=== PATIENT | male | born 1970 | race Caucasian/White ===

== ENCOUNTER 2024-04-02 08:16 | Emergency (ER) | payer OTHER, SELFPAY ==
--- NOTE | ~2024-04-02 | XR_ITS ---
EXAMINATION: XR SHOULDER, RIGHT CLINICAL INFORMATION: Pain COMPARISON: Chest radiograph from 03/12/2017 TECHNIQUE: Four views of the right shoulder. FINDINGS: No acute visible fracture or dislocation. Degenerative changes of the glenohumeral and acromioclavicular joint.. Joint space alignment otherwise maintained. Soft tissues are unremarkable. Visualized portions of the chest are unremarkable. XR/XR shoulder RT min 2V IMPRESSION: 1. No acute visible fracture or dislocation. 2. Degenerative changes of the glenohumeral and acromioclavicular joint. Electronically signed by: Edmundo Delaney MD 04/02/2024 10:08 AM EDT
[2024-04-02 08:20] VITALS: BP 174/82; PULSE 83; RESP 20; TEMP 36.8; O2SAT 97; BMI 60.7
--- NOTE | 2024-04-02 08:41 | PC.NURSE ---
NA to name at 08:42
--- NOTE | 2024-04-02 09:02 | PC.NURSE ---
NA to name at 09:02
--- NOTE | 2024-04-02 09:16 | ED_ITS ---
HPI - Extremity Problem General Chief complaint: Extremity Injury, Upper Stated complaint: Pain R shoulder 1 week Time Seen by Provider: 04/02/24 09:16 Source: patient Mode of arrival: ambulatory Limitations: no limitations History of Present Illness ED Provider: Crys LLAMAS Narrative: Patient is a 53-year-old male with history of T2 DM, HTN presenting to the emergency department with complaint right-sided shoulder pain for the past 2 weeks. He denies fall, recent MVC or other injury. Does state that he has been moving a lot of items and rearranging things in his garage recently. He has been using Tylenol with little relief. Denies any weakness, numbness, tingling. States pain does not radiate down right arm. When asked to locate the pain, patient points to trapezius area. Denies any decreased range of motion. Onset (ago): week(s) Associated symptoms: denies other symptoms Related Data Previous Rx's ?Medication ?Instructions ?Recorded cyclobenzaprine 5 mg tablet 5 mg PO TID PRN muscle spasm #10 04/02/24 tabs diclofenac sodium 1 % topical gel 2 g topical QID #100 grams 04/02/24 Allergies Allergy/AdvReac Type Severity Reaction Status Date / Time No Known Allergies Allergy Verified 04/02/24 08:23 [No Known Allergies*] Review of Systems Review of Systems: As per HPI. Yes all other systems are reviewed and are negative Constitutional: Constitutional: Reports as per HPI [facility] Social History Social History Advance Directives: No Advance Directives Information Provided: Yes Do you have a plan to hurt others: No Plan Physical Exam Vital Signs: Vital Signs: Last Vital Signs Temp 98.3 F 04/02/24 08:20 Pulse 83 04/02/24 08:20 Resp 20 04/02/24 08:20 BP 174/82 H 04/02/24 08:20 Pulse Ox 97 04/02/24 08:20 O2 Del Method Room Air 04/02/24 08:20 BMI result Body Mass Index 60.7 Vital signs have been reviewed and appear to be correct. Blood pressure elevated. Heart rate normal. Respiratory rate normal. Temperature normal. Oxygen saturation normal. Const: General: cooperative, healthy appearing and no acute distress Nutritional Appearance: obese morbidly obese Orientation/consciousness: oriented to person, oriented to place, oriented to time and patient oriented x3 Limitations: no limitations HEENT: Head: Yes normocephalic and Yes atraumatic Ears: external ears normal General nose exam: Normal external nose present Face and sinus: Yes face symmetric Mouth: oropharynx normal and moist mucous membranes Throat: Yes uvula midline Eyes: Pupils: Equal, round and reactive pupils present Neck: Neck: Yes normal visual inspection, Yes full ROM, Yes no lymphadenopathy, Yes no meningeal signs, Yes trachea midline, Yes supple, No anterior neck swelling and No tender Carotids: normal carotid upstroke Resp: Effort & Inspection: normal respiratory effort and able to speak in complete sentences Auscultation: clear to auscultation bilaterally Cardio: Rate: regular rate Rhythm: regular rhythm Heart sounds: S1 normal heart sound present and S2 normal heart sound present GI: Palpation (GI): Soft to palpation and nontender Auscultation: normoactive bowel sounds : General: Yes no CVA tenderness Back/Spine/Pelvis: Back: no CVA tenderness Cervical Spine: normal cervical lordosis, cervical ROM normal, cervical muscular tenderness (right), No pain with cervical ROM, No cervical spasm, No Cervical spine tenderness and No step off deformity Skin: General skin exam: elasticity normal and turgor normal Neuro: General: oriented to person, oriented to place, oriented to time, patient oriented x3, moves all extremities, no meningeal signs, no focal motor deficits and CN's II-XI intact bilaterally Cranial nerves: Yes Equal, round and reactive pupils present Cognition (Neuro): normal cognition Extrem: General: Yes full ROM, Yes no pedal edema and Yes no calf tenderness Right upper extremity: shoulder/upper arm Details: normal to inspection, tende rness (over trapezius), axillary nerve sensory function normal and normal ROM; no swelling, no ecchymosis and no unusual warmth and Extremity exam: right hand Details: vascular exam Details: radial pulse present Details: 2+ and normal ROM of fingers Psych: Mental Status: mental status grossly normal Affect: normal affect Thought process: Normal thought process present Medical Decision Making Medical Decision Making MDM Narrative: Patient is a 53-year-old male with history of T2 DM, HTN presenting to the emergency department with complaint right-sided shoulder pain for the past 2 weeks. On exam patient is awake, A+Ox3, VS WNL, afebrile, normal neurological exam without focal deficits, physical exam findings as above. Given reported symptoms and physical exam findings, initial differential includes right shoulder strain, cervical strain, cervical radiculopathy. X-ray notable for Degenerative changes of glenohumeral and AC joint of right shoulder.. My interpretation is in agreement with the radiologist's interpretation. Patient updated on results and all questions answered. Physical exam findings most consistent with musculoskeletal pain. Will treat patient with cyclobenzaprine and diclofenac gel. Advised warm compresses. Follow up with primary care provider. Return precautions discussed at bedside. Patient verbalized understanding of and agreement with plan. Differential Diagnosis Differential Diagnoses: The differential diagnosis associated with the presentation includes as per mdm Independent Interpretation I performed an independent interpretation of an: Plain X-Ray Interpretation: Degenerative changes of glenohumeral and AC joint of right shoulder. Radiology Impression Discussion of test interpretation with radiology: I have reviewed the radiologist's reading. Radiologist Impression: XR/XR shoulder RT min 2V IMPRESSION: 1. No acute visible fracture or dislocation. 2. Degenerative changes of the glenohumeral and acromioclavicular joint. External Record Review External record reviewed: Inpatient record, Office record and Outpatient record Prescription Management I considered prescription management with: Pain Medication and Other Chronic Conditions Patient?s care impacted by: Diabetes and Hypertension Discharge Plan Discharge Clinical Impression: Muscle strain of right shoulder Patient Disposition: Home, Self-Care Instructions: Muscle Strain (DC), Warm Compress or Soak (ED) Additional Instructions: You have been evaluated in the emergency department today for shoulder pain. Your evaluation did not find evidence of medical conditions requiring emergent intervention at this time. We recommend applying warm compresses for 10-15 minutes at a time several times daily, performing gentle stretching exercises several times daily and resume normal activities as tolerated. We recommend you take 600mg ibuprofen every 6 hours or 650mg Tylenol every 6 hours as needed for pain. If Needed you can alternate these medications as they take 1 medication every 3 hours. For instance at noon take ibuprofen, then at 3:00 p.m. take Tylenol, then at 6:00 p.m. take ibuprofen. You are being prescribed muscle relaxers which you can use every 8 hours as needed for muscle spasms. You are being prescribed diclofenac gel which you can apply directly to the affected area as prescribed. Please schedule an appointment for follow-up with your primary care provider this week. Return to the emergency department if you experience worsening pain, numbness, tingling, change of color in your arm, or any other concerning symptoms. Prescriptions: New cyclobenzaprine 5 mg tablet 5 mg PO TID PRN (Reason: muscle spasm) Qty: 10 0RF diclofenac sodium 1 % gel 2 g topical QID Qty: 100 0RF Rx Instructions: apply to right shoulder Print Language: Vietnamese
[2024-04-02 10:31] VITALS: BP 144/72; PULSE 71; RESP 16; TEMP 36.3; O2SAT 98
[2024-04-02 10:32] VITALS: BP 144/72; PULSE 71; RESP 16; TEMP 36.3; O2SAT 98
== END 2024-04-02 10:43 | disposition home or self-care (01) ==
PROVIDERS: Emergency Provider Emergency Medicine
DX: S46.911A Strain of unspecified muscle, fascia and tendon at shoulder and upper arm level, right arm, initial encounter (principal); M25.511 Pain in right shoulder; X58.XXXA Exposure to other specified factors, initial encounter; Y93.89 Activity, other specified; Y92.89 Other specified places as the place of occurrence of the external cause; Y99.8 Other external cause status; Z79.899 Other long term (current) drug therapy
CPT/HCPCS: 73030; 99283

== ENCOUNTER 2024-07-16 16:43 | Emergency (ER) | payer OTHER, SELFPAY ==
--- NOTE | ~2024-07-16 | XR_ITS ---
EXAMINATION: XR CHEST CLINICAL INFORMATION: cough COMPARISON: Chest 03/12/2017 TECHNIQUE: 2 views of the chest were obtained. FINDINGS: No significant abnormality is noted involving the heart, lungs, mediastinum, bony thorax or soft tissues. XR/XR chest 2V IMPRESSION: Unremarkable chest examination. Electronically signed by: Mike Saini MD 07/16/2024 07:00 PM [facility] [place]
[2024-07-16 17:33] VITALS: BP 158/67; PULSE 94; RESP 22; TEMP 37.2; O2SAT 98; BMI 59.0
--- NOTE | 2024-07-16 17:33 | ED_ITS ---
HPI - General Adult General Chief complaint: Upper Respiratory Symptoms Stated complaint: headache,sore throat cough Time Seen by Provider: 07/16/24 19:11 Source: patient, RN notes reviewed and old records reviewed Mode of arrival: ambulatory Limitations: no limitations History of Present Illness ED Provider: Radha LLAMAS narrative: 53-year-old male presents for evaluation of flu-like symptoms. His symptoms started 2 days ago he reports that several individuals or workup in sick with similar symptoms. He also complains of a sore throat, cough He reports subjective fevers and chills. No abdominal pain, nausea vomiting The patient does not smoke Related Data Previous Rx's ?Medication ?Instructions ?Recorded cyclobenzaprine 5 mg tablet 5 mg PO TID PRN muscle spasm #10 04/02/24 tabs diclofenac sodium 1 % topical gel 2 g topical QID #100 grams 04/02/24 oseltamivir 75 mg capsule (Tamiflu) 75 mg PO Q12H 5 days #10 caps 07/16/24 Allergies Allergy/AdvReac Type Severity Reaction Status Date / Time No Known Allergies Allergy Verified 07/16/24 17:35 [No Known Allergies*] Review of Systems Constitutional: Constitutional: Reports body ache(s), Reports chills, Reports fever(s) and Reports headache(s) ENT: Denies vertigo, Denies dizziness, Reports headache(s) and Reports sore throat Cardiovascular: Cardiovascular: Denies chest pain and Reports dyspnea Respiratory: Respiratory: Reports cough, Reports dyspnea and Reports wheezing Gastrointestinal: Gastrointestinal: Denies abdominal pain, Denies nausea and Denies vomiting Musculoskeletal: Musculoskeletal: Denies back pain Integumentary/Breasts: Skin/Breast: Denies rash Neurologic: Denies vertigo, Denies dizziness and Reports headache(s) Allergic/Immunologic: Allergic/Immunologic: Reports wheezing PMFSH Social History Social History Advance Directives: No Advance Directives Information Provided: No Physical Exam ED Vital Signs: Vital Signs - 24 hr 07/16/24 17:33 Temperature 98.9 F Pulse Rate 94 Respiratory Rate 22 H Blood Pressure 158/67 H Pulse Oximetry 98 Oxygen Delivery Method Room Air BMI result Body Mass Index 59.0 Const General: healthy appearing, comfortable, no acute distress, alert and awake Nutritional Appearance: well nourished Orientation/consciousness: patient oriented x3 HENMT Head: Yes normocephalic and Yes atraumatic Throat: Yes posterior oropharynx normal Eyes Eyelids: Yes eyelids normal Conjunctivae: conjunctivae normal Sclerae: sclerae normal Corneas: corneas normal Pupils: Equal, round and reactive pupils present EOM: EOMs intact bilaterally Neck Neck: Yes full ROM Resp Other: Faint expiratory wheeze heard best in the bilateral bases. Effort & Inspection: normal respiratory effort, able to speak in complete sentences and not labored Skin General skin exam: elasticity normal Neuro General: patient oriented x3 Cranial nerves: Yes Equal, round and reactive pupils present and Yes Bilaterally intact EOM present Cognition (Neuro): normal cognition Extrem Other: Moving all extremities well without any obvious deformities Course Course Course Narrative: RME, this is a rapid medical exam performed by Sonu Garcia please refer to primary provider for complete H&P- 53-year-old male presents for evaluation of sore throat, cough, shortness of breath. He also had subjective fevers. Plan for viral swabs, strep throat swab. He has faint wheezing on exam, we will add a chest x-ray as well. Medical Decision Making Medical Decision Making [facility] Narrative: Patient's chest x-ray is clear, vital signs are stable, he tested positive for influenza A. He is within the window for Tamiflu treatment. Discussed risks and benefits of treatment and he would like to proceed with treatment. He will be discharged to follow up with his PCP. Differential Diagnosis Differential Diagnoses: The differential diagnosis associated with the presentation includes Influenza Bronchitis Pneumonia Upper respiratory infection Lab Data Labs: Lab Results 07/16/24 Range/Units 17:41 Influenza Type A (PCR) POSITIVE A (Negative) Influenza Type B (PCR) NEGATIVE (Negative) RSV RNA Qual (PCR) NEGATIVE (Negative) SARS-CoV-2 RNA (RT-PCR) NEGATIVE (Negative) S. pyogenes GrpA LATANYA Negative (Negative) Discharge Plan Discharge Clinical Impression: Influenza Patient Disposition: Home, Self-Care Instructions: Influenza (ED) Additional Instructions: You tested positive for influenza A. Take the Tamiflu twice daily for the next 5 days. Drink lots of fluids. Use Motrin/Tylenol for fevers, body aches Prescriptions: New oseltamivir [Tamiflu] 75 mg capsule 75 mg PO Q12H 5 Days Qty: 10 0RF No Action cyclobenzaprine 5 mg tablet 5 mg PO TID PRN (Reason: muscle spasm) Qty: 10 0RF diclofenac sodium 1 % gel 2 g topical QID Qty: 100 0RF Rx Instructions: apply to right shoulder Stand Alone Forms: Work/School Release Print Language: Portuguese
[2024-07-16 18:04] LABS: IDNOW Serial# 08D9AD1C; Strep A Nucleic Acid Negative (Negative)
[2024-07-16 18:26] LABS: Influenza A PCR POSITIVE (Negative); Influenza B PCR NEGATIVE (Negative); Resp Syncy Virus RNA Qual PCR NEGATIVE (Negative); SARS COV2 PCR INHOUSE NEGATIVE (Negative)
[2024-07-16 21:28] VITALS: BP 158/67; PULSE 94; RESP 22; TEMP 37.2; O2SAT 98
== END 2024-07-16 21:29 | disposition home or self-care (01) ==
PROVIDERS: Physician Assistant; Emergency Provider Emergency Medicine
DX: J10.1 Influenza due to other identified influenza virus with other respiratory manifestations (principal); R05.9 Cough, unspecified; J02.9 Acute pharyngitis, unspecified; Z03.818 Encounter for observation for suspected exposure to other biological agents ruled out
CPT/HCPCS: 0241U; 71046; 87651; 99282; 99283

== ENCOUNTER → 2024-07-16 17:37 | Outpatient (BNV) | payer OTHER, SELFPAY | PROVIDERS: Emergency Provider Emergency Medicine; Visit Provider Radiology Diagnostic Radiology | DX: R05.9 Cough, unspecified (principal) | CPT/HCPCS: 71046 ==

== ENCOUNTER 2024-09-11 19:34 | Emergency (ER) | payer OTHER, SELFPAY ==
[2024-09-11 19:50] VITALS: BP 184/107; PULSE 83; RESP 18; TEMP 36.8; O2SAT 97; BMI 53.7
--- NOTE | 2024-09-11 19:55 | ED.GENADULT ---
HPI - General Adult General Chief complaint: Eye Problems Stated complaint: left pain blurry, Time Seen by Provider: 09/12/24 00:07 Source: patient, RN notes reviewed and old records reviewed Mode of arrival: ambulatory Limitations: no limitations History of Present Illness ED Provider: Radha LLAMAS narrative: 53-year-old male presents for evaluation of left eye blurry vision. His symptoms 1st started 3 days ago. He denies any pain to the left eye. The eye is red and ?itchy. ? His blurry vision is worse if he looks down and to his left The patient has clear if he looks up into his right He wears contact lenses and reports he does not wear them overnight Related Data Previous Rx's ?Medication ?Instructions ?Recorded cyclobenzaprine 5 mg tablet 5 mg PO TID PRN muscle spasm #10 04/02/24 tabs diclofenac sodium 1 % topical gel 2 g topical QID #100 grams 04/02/24 oseltamivir 75 mg capsule (Tamiflu) 75 mg PO Q12H 5 days #10 caps 07/16/24 ciprofloxacin HCl 0.3 % eye drops 2 drp ophthalmic-Left DIRECTED 09/12/24 #10 mL Allergies Allergy/AdvReac Type Severity Reaction Status Date / Time No Known Allergies Allergy Verified 09/11/24 19:52 [No Known Allergies*] Review of Systems Eyes: Eyes: Reports blurry vision, Denies exophthalmos, Reports change in vision, Denies decreased night vision, Denies eye discharge, Denies dry eyes, Denies floaters, Reports irritation, Reports itchy eyes, Denies loss of peripheral vision, Denies eye pain, Reports requires corrective lenses, Denies seeing flashes, Denies photophobia, Denies spots in vision and Denies tunnel vision ENT: Denies vertigo Cardiovascular: Cardiovascular: Denies chest pain and Denies dyspnea Respiratory: Respiratory: Denies cough and Denies dyspnea Gastrointestinal: Gastrointestinal: Denies abdominal pain Musculoskeletal: Musculoskeletal: Denies back pain Integumentary/Breasts: Skin/Breast: Denies rash Neurologic: Denies vertigo Allergic/Immunologic: Allergic/Immunologic: Reports itchy eyes PMFSH Social History Social History Advance Directives: No Advance Directives Information Provided: Yes Physical Exam ED Vital Signs: Vital Signs - 24 hr 09/11/24 19:50 Temperature 98.2 F Pulse Rate 83 Respiratory Rate 18 Blood Pressure 184/107 H Pulse Oximetry 97 Oxygen Delivery Method Room Air BMI result Body Mass Index 53.7 Const General: healthy appearing, comfortable, no acute distress, alert and awake Nutritional Appearance: well nourished Orientation/consciousness: patient oriented x3 HENMT Head: Yes normocephalic and Yes atraumatic Eyes Other: There is an ulceration of the cornea in the left about 5 mm in diameter. It is located slightly lateral and inferior to the center of the pupil. Minimal conjunctival injection. No obvious foreign body. Eyelids: Yes eyelids normal Pupils: Equal, round and reactive pupils present EOM: EOMs intact bilaterally Direct Ophthalmoscopy: No photophobia Neck Neck: Yes full ROM Resp Effort & Inspection: normal respiratory effort, able to speak in complete sentences and not labored Skin General skin exam: elasticity normal Neuro General: patient oriented x3 Cranial nerves: Yes Equal, round and reactive pupils present and Yes Bilaterally intact EOM present Cognition (Neuro): normal cognition Extrem Other: Moving all extremities well without any obvious deformities Course Course Course Narrative: This is a rapid medical exam performed by Kristyn Grider PA-C. The patient is a 53-year-old male with a history of diabetes, who presents with left eye pain x3 days. Patient denies being exposed to a projectile. He is noting dry crusted discharge in the mornings. He does use contact lenses, he does not have them in right now. The patient is stable and can return to the waiting room pending his full medical assessment. We will obtain a visual acuity. Medical Decision Making Medical Decision Making MDM Narrative: 53-year-old male presents for evaluation of blurry vision to his left eye. He has no significant eye pain. Clinically he has a fairly obvious corneal ulcer. This is likely related to his contact lens use and possibly abuse. We will treat with ciprofloxacin ophthalmic drops. He will be referred to Dr. Barnhart [facility] for urgent referral. 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 It is important that you do not wear your contacts until cleared to do so by an child welfare assistant Use ciprofloxacin drops as directed for 1 week It is important that you call Ophthalmology as soon as possible to schedule follow-up You may follow up with Dr Brice at the number provided Prescriptions: New ciprofloxacin HCl 0.3 % drops 2 drp ophthalmic-Left DIRECTED Qty: 10 0RF Rx Instructions: put 2 drps in affected eye(s) every 2hr up to 8 times/day x2days; then 4 times/day x5days into the left eye as directed; No Action cyclobenzaprine 5 mg tablet 5 mg PO TID PRN (Reason: muscle spasm) Qty: 10 0RF diclofenac sodium 1 % gel 2 g topical QID Qty: 100 0RF Rx Instructions: apply to right shoulder oseltamivir [Tamiflu] 75 mg capsule 75 mg PO Q12H 5 Days Qty: 10 0RF Referrals: Heron Brice [Physician] - (left eye corneal ulceration. Contacts lens wearer) Print Language: Citizen Of [place]
--- NOTE | 2024-09-11 20:00 | MHC.EDTECH ---
Patient brought into triage area, visual acuity completed, patient wears glasses to see, did not have them with him, RT eye 20/30, LT eye patient couldn't see letters, triage provider aware
[2024-09-12 00:34] VITALS: BP 160/74; PULSE 80; RESP 17; TEMP 36.6; O2SAT 98
== END 2024-09-12 00:35 | disposition home or self-care (01) ==
PROVIDERS: Emergency Provider Internal Medicine
DX: H16.002 Unspecified corneal ulcer, left eye (principal); H57.12 Ocular pain, left eye; H53.8 Other visual disturbances
CPT/HCPCS: 99283; 99284

== ENCOUNTER 2024-12-18 12:29 | Emergency (ER) | payer OTHER, SELFPAY ==
--- NOTE | ~2024-12-18 | XR_ITS ---
EXAMINATION: XR KNEE 4 OR MORE VIEWS LEFT HISTORY: Left knee pain. COMPARISON: There are no prior studies available for comparison. FINDINGS: Five views of the left knee are submitted. Osseous mineralization is normal. There is no fracture or dislocation. The joint spaces are preserved. The soft tissues are unremarkable. There is no joint effusion. XR/XR knee LT 4V IMPRESSION: Unremarkable examination of the left knee. Electronically signed by: Jean Marie Scales MD 12/18/2024 01:20 PM EDT
[2024-12-18 12:33] VITALS: BP 175/89; PULSE 75; RESP 20; TEMP 36.6; O2SAT 96; BMI 58.0
--- NOTE | 2024-12-18 12:38 | ED_ITS ---
HPI - General Adult General Chief complaint: Extremity Injury, Lower Stated complaint: L Knee Pain No Injury Time Seen by Provider: 12/18/24 13:35 Source: patient Mode of arrival: ambulatory Limitations: no limitations History of Present Illness ED Provider: Princess Kumar PA-C HPI narrative: Patient is a 54 year old assigned male at with no reported medical history presenting to the emergency department today with left knee pain. 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 Patient states that over the last month his left knee has hurt continually and worse when on it for extended periods of time. Patient denies any dizziness, lightheadedness, abdominal pain, nausea, vomiting, fever, chills, blurry vision, double vision, loss of vision, chest pain, difficulty breathing, shortness of breath, back pain, night sweats, pain with urination, increased urinary frequency, increased urinary urgency, blood in his urine or stool, syncope or a near syncopal episode, recent trauma or falls, bowel incontinence, bladder incontinence, or any other complaints at this time. Onset (ago): month(s) (1) Location: left and lower extremity Relieving factors: none Exacerbating factors: none Associated symptoms: denies other symptoms Treatments prior to arrival: none Related Data Previous Rx's ?Medication ?Instructions ?Recorded cyclobenzaprine 5 mg tablet 5 mg PO TID PRN muscle spasm #10 04/02/24 tabs diclofenac sodium 1 % topical gel 2 g topical QID #100 grams 04/02/24 oseltamivir 75 mg capsule (Tamiflu) 75 mg PO Q12H 5 days #10 caps 07/16/24 ciprofloxacin HCl 0.3 % eye drops 2 drp ophthalmic-Left DIRECTED 09/12/24 #10 mL Allergies Allergy/AdvReac Type Severity Reaction Status Date / Time No Known Allergies Allergy Verified 12/18/24 12:36 [No Known Allergies*] Review of Systems Constitutional: Constitutional: Reports no additional constitutional complaints, Denies chills, Denies fever(s) and Denies night sweats Eyes: Eyes: Reports no additional eye complaints, Denies blurry vision, Denies change in vision, Denies diplopia, Denies eye discharge, Denies loss of vision and Denies eye pain ENT: Denies dizziness Cardiovascular: Cardiovascular: Reports no additional cardiovascular complaints, Denies chest pain, Denies lightheadedness, Denies Loss of Co nsciousness and Denies dyspnea Respiratory: Respiratory: Reports no additional respiratory complaints and Denies dyspnea Gastrointestinal: Gastrointestinal: Reports no additional gastrointestinal complaints, Denies abdominal pain, Denies melena, Denies hematochezia, Denies change in bowel habits and Denies change in stool character Genitourinary: Genitourinary: Reports no additional male genitourinary complaints, Denies hematuria, Denies oliguria, Denies difficulty urinating, Denies dysuria, Denies urinary frequency, Denies urinary hesitancy, Denies urinary incontinence and Denies urinary urgency Musculoskeletal: Musculoskeletal: Reports no additional musculoskeletal complaints, Denies numbness and Denies tingling Comments: left knee pain Neurologic: Denies dizziness, Denies loss of vision, Denies numbness and Denies tingling Psychiatric: Psychiatric: Reports no additional psychiatric complaints Endocrine: Endocrine: Reports no additional endocrine complaints Hematologic/Lymphatic: Hematologic/Lymphatic: Reports no additional hematologic/lymphatic complaints Allergic/Immunologic: Allergic/Immunologic: Reports no additional allergic/immunologic complaints PMFSH Past Medical History Attestation statement: The following information was validated with the patient. Source: old records reviewed and nursing notes reviewed Social History Social History Smoked in Last 30 Days: No Use of substances other than those prescribed or required for medical reasons: No Advance Directives: No Advance Directives Information Provided: Yes Do you have a plan to hurt others: No Plan Physical Exam ED Vital Signs: Vital Signs - 24 hr 12/18/24 12:33 12/18/24 14:24 Temperature 97.8 F 98 F Pulse Rate 75 71 Respiratory Rate 20 16 Blood Pressure 175/89 H 154/85 H Pulse Oximetry 96 96 Oxygen Delivery Method Room Air Room Air BMI result Body Mass Index 58.0 Const General: cooperative, no acute distress, alert and awake Nutritional Appearance: well nourished Orientation/consciousness: patient oriented x3 HENMT Head: Yes normal to inspection and Yes atraumatic Ears: hearing grossly normal bilaterally and external ears normal General nose exam: Normal external nose present, no nasal discharge noted and no epistaxis Face and sinus: Yes normal facial exam, No abrasion and No laceration Mouth: Normal oral and palatal mucosa present, no drooling and no muffled voice Eyes General: appearance normal, both eyes and all related structures Periorbital: periorbital findings normal Eyelids: Yes eyelids normal Conjunctivae: conjunctivae normal Pupils: Equal, round and reactive pupils present EOM: EOMs intact bilaterally Neck Neck: Yes normal visual inspection, Yes full ROM and Yes no lymphadenopathy Resp Effort & Inspection: normal respiratory effort and able to speak in complete sentences Neuro General: patient oriented x3, moves all extremities and CN's II-XI intact bilaterally Cranial nerves: Yes Equal, round and reactive pupils present Cognition (Neuro): normal cognition Extrem General: Yes normal to inspection, Yes full ROM and Yes capillary refill normal Psych Appearance: grossly normal Mental Status: mental status grossly normal Affect: normal affect Attitude: cooperative Thought process: Normal thought process present Thought content: Normal thought content present Insight: Good insight present (Psych) Course Course Course Narrative: RME: 54-year-old male presents to ED for left knee pain for 1 month without any injury or fall. Patient is sometimes hears popping clicking sound in left knee. Knee exam is negative for any swelling redness or stiffness. Vascular motor neuro exam intact. Patient is sent for knee x-ray Medications Administered Discontinued Medications Generic Name Dose Route Start Last Admin Trade Name Freq PRN Reason Stop Dose Admin Ketorolac Tromethamine 15 mg 12/18/24 13:45 12/18/24 13:56 Ketorolac Tromethamine 15 Mg/Ml Vial IM 12/18/24 13:46 15 mg ONCE ONE Administration Medical Decision Making Medical Decision Making [facility] Narrative: Patient is a 54 year old assigned male at with no reported medical history presenting to the emergency department today with left knee pain. Patient's physical exam was unremarkable. Patient's blood work was unremarkable. Patient's left knee x-ray showed no acute process. I explained my physical exam findings as well as all test results to the patient. I answered all questions asked by the patient. I stressed the importance of the patient taking his medication as directed (either prescribed or as the over the counter packaging recommends). I stressed the importance of the patient following up with his primary care provider and the orthopedic group. I stressed the importance of the patient re turning to the emergency department immediately if his symptoms were to worsen or if he were to develop any dizziness, shortness of breath, difficulty breathing, chest pain, blurry vision, loss of vision, nausea, vomiting, abdominal pain, fever, chills, back pain, or any other complaints. Patient verbalized agreement and understanding with this treatment plan and discharge. Differential Diagnosis Differential Diagnoses: The differential diagnosis associated with the presentation includes Left knee pain Left knee overuse Admission/Observation Consideration of admission/observation: Escalation of care including admission/observation considered Patient would have been admitted to the hospital had his work up had any findings where hospital admission was appropriate and his clinical presentation warranted hospital admission. Independent Interpretation I performed an independent interpretation of an: Plain X-Ray Interpretation: My interpretation is in agreement with the radiologist's impression of this imaging study. EXAMINATION: XR KNEE 4 OR MORE VIEWS LEFT HISTORY: Left knee pain. COMPARISON: There are no prior studies available for comparison. FINDINGS: Five views of the left knee are submitted. Osseous mineralization is normal. There is no fracture or dislocation. The joint spaces are preserved. The soft tissues are unremarkable. There is no joint effusion. XR/XR knee LT 4V IMPRESSION: Unremarkable examination of the left knee. Electronically signed by: Jean Marie Scales MD 12/18/2024 01:20 PM EDT RP Dictated By: Jean Marie Scales MD Signed By: Electronically signed by Jean Marie Scales MD 12/18/24 2365 Radiology Impression Discussion of test interpretation with radiology: I have reviewed the radiologist's reading. Discharge Plan Discharge Clinical Impression: Knee pain Patient Disposition: Home, Self-Care Instructions: Knee Pain (ED) Additional Instructions: Your x-ray today showed no acute process. This is likely an overuse pain of the left knee. Continue wearing the brace you have as well as using comfortable shoes with appropriate insoles. Follow up with your primary care provider and the orthopedic team. Return to the emergency department immediately if your symptoms worsen or if you develop any numbness, tingling, dizziness, shortness of breath, difficulty breathing, chest pain, blurry vision, loss of vision, nausea, vomiting, abdominal pain, fever, chills, back pain, or any other complaints. Please see the information below about our Patient Portal. If you are not yet enrolled in the [facility] Patient Portal, you will receive an enrollment email invitation following your visit to any [facility] setting. You may also self-enroll in the Patient Portal by visiting our website: [email or web address] The following information is required to access the Patient Portal: - Your [facility] Medical Record Number - Your personal home email address (must match what is in your electronic medical record, Registration staff can assist with this) - Name - Date of Capabilities of the Patient Portal: - Message some providers - View upcoming appointments - Access your health summary, medical history, and visit history - View current conditions and allergies - View procedure and lab results - View your medications, including guidelines, side effects, and precautions - Complete pre-appointment questionnaires requested by your provider - Ready summary reports of your office visits and procedures To access the Patient Portal Mobile Zafar, follow these directions: - Search [employer] in the Zafar Store or Google Play Store - Download the Zafar - Search for [facility] - Enter your login/password Prescriptions: No Action cyclobenzaprine 5 mg tablet 5 mg PO TID PRN (Reason: muscle spasm) Qty: 10 0RF diclofenac sodium 1 % gel 2 g topical QID Qty: 100 0RF Rx Instructions: apply to right shoulder oseltamivir [Tamiflu] 75 mg capsule 75 mg PO Q12H 5 Days Qty: 10 0RF ciprofloxacin HCl 0.3 % drops 2 drp ophthalmic-Left DIRECTED Qty: 10 0RF Rx Instructions: put 2 drps in affected eye(s) every 2hr up to 8 times/day x2days; then 4 times/day x5days into the left eye as directed; Referrals: [facility] Family Medicine [Provider Group] (Call to establish and follow up with a primary care provider. If you already have a primary care provider, please follow up with them.) [facility] Primary Care, Isidro [Provider Group] (Call to establish and follow up with a primary care provider. If you already have a primary care provider, please follow up with them.) [facility] Primary Care, Vasyl [Provider Group] (Call to establish and follow up with a primary care provider. If you already have a primary care provider, please follow up with them.) [facility] Primary Care, LULY [Provider Group] (Call to establish and follow up with a primary care provider. If you already have a primary care provider, please follow up with them.) [facility] Primary Care, Jesu Diego [Provider Group] (Call to establish and follow up with a primary care provider. If you already have a primary care provider, please follow up with them.) [facility] Orthopedic Surgeons [Provider Group] (Call to establish and follow up with an military communications specialist about your left knee pain. ) Interventions: ED Discharge Assessment Last Done: 12/18/24 14:24 Discharge Date/Time: 12/18/24 14:25 Print Language: Amharic
--- OUTSIDE RECORDS SUMMARY | 2024-12-18 13:49 | XMS_ITS | Clinical Summary ---
Author Organization [facility] Address [address] [place] [id number] Phone Care Team Providers Care Plumbing Mechanic Name Role Phone Unknown, Unknown Primary Care Provider Alesia pimentel Allergies No known active allergies Medications losartan (COZAAR) 100 MG tablet Take 100 mg by mouth daily. Active hydroCHLOROthia zide (HYDRODIURIL) 12.5 MG tablet Take 12.5 mg by mouth daily. Active cyclobenzaprine (FLEXERIL) 10 MG tablet Take 10 mg by mouth nightly as needed. Active topiramate (TOPAMAX) 100 MG tablet Take 100 mg by mouth 2 (two) times a day. Active fluticasone propionate (FLONASE) 50 mcg/actuation nasal spray 1 spray by Nasal route daily. 15.8 mL 09/11/2017 Active cetirizine (ZYRTEC) 10 MG tablet Take 1 tablet (10 mg total) by mouth daily. 30 tablet 09/11/2017 Active Active Problems No known active problems Social History Tobacco Use Types Packs/Day Years Used Date Smoking Tobacco: Never Smokeless Tobacco: Never Alcohol Use Standard Drinks/Week Comments No 0 (1 standard drink = 0.6 oz pur e alcohol) Education Answer Date Recorded Are you interested in more education? Not on julieth e 11/18/2022 Are you concerned about learning? Not on file 11/18/2022 No 11/18/2022 No 11/18/2022 Digital Access Answer Date Recorded No 12/16/2022 No 12/16/2022 No 12/16/2022 Reliable internet access at home? Not on file 12/16/2022 Device with a working camera? Not on file Sex and Gender Information Value Date Recorded Sex Assigned at Male 09/11/2017 4:40 PM EST Legal Sex Male 5:01 PM EST Gender Identity Male 09/11/2017 4:40 PM EST Sexual Orientation Not on file Last Filed Vital Signs Vital Sign Reading Time Taken Comments Blood Pressure 155/95 06/24/2022 6:51 AM EST Pulse 85 06/24/2022 6:51 AM EST Temperature 36.4 ??C (97.5 ??F) 06/23/2022 10:[address] Respiratory Rate 20 06/24/2022 6:51 AM EST Oxygen Saturation 99% 06/24/2022 6:51 AM EST Inhaled Oxygen Concentration - - Weight 123.4 kg (272 lb) 06/23/2022 10:56 PM EST Height 172.7 cm (5' 8 ) 06/23/2022 10:56 PM EST Body Mass Index 41.36 06/23/2022 10:56 PM EST Plan of Treatment Health Maintenance Due Date Last Done Comments CREATININE LEVEL 1968 LIPID PANEL 1968 POTASSIUM LEVEL 1968 DEPRESSION SCREENING 1980 HEPATITIS C SCREENING 1986 HIV ONE-TIME SCREENING (18-6 5 YEARS) 1986 SCREENING FOR DIABETES 11/06/2003 Adult Td,Tdap Booster 07/23/2009 07/23/1999 COLOGUARD 2013 COLONOSCOPY 2013 COLORECTAL CANCER SCREENING 2013 FIT TEST 2013 FOBT 2013 SIGMOIDOSCOPY 2013 VIRTUAL COLONOSCOPY 2013 ZOSTER VACCINES (1 of 2) 2018 PNEUMOCOCCAL VACCINES (50+ y ears) (2 of 2 - PCV) 04/21/2021 04/21/2020 COVID-19 VACCINE (2 - 2023-2 5 season) 2024 04/26/2021 SMOKING STATUS SCREENING (On ce After 26 Yrs) Completed 06/23/2022 HEPATITIS A VACCINES Aged Out No long er eligible based on patient's age to complete this topic HIB VACCINES Aged Out No longer eligi ble based on patient's age to complete this topic MENINGOCOCCAL VACCINES (ACWY) Aged Out No longer eligible based on patient's age to complete this topic MENINGOCOCCAL VACCINES (B) Aged Out N o longer eligible based on patient's age to complete this topic Medical Devices Not on file Insurance [address] [place], [place] [address]O Member Subscriber Plan / Payer (Ef fective 2017-Present) Name:Santiago Perez Relation to Subscriber:Self Name:Santiago Perez Payer ID:[id number] Group ID:[id number] Type:Medicaid [address] Member Subscriber Plan / Payer (Ef fective 2017-Present) Name:Santiago Perez Relation to Subscriber:Self Name:Santiago Perez Payer ID:[id number] Group ID:[id number] Type:Medicaid Address: [address] [facility] [place] [address] [place] [address] [facility] Teranetics[facility] EcTownUSAMISSOURI SOUTHERN HEALTHCAREPL[facility] [place] [address] [place] [address] [facility] [place] [address] [facility] [address] [facility] Member Subscriber Plan / Payer (Ef fective 2017-Present) Name:Santiago Perez Relation to Subscriber:Self Name:Santiago Perez Payer ID:[id number] Group ID:[id number] Type:Medicaid Address: [address] [place] [address] Member Subscriber Plan / Payer (Ef fective 2017-Present) Name:Santiago Perez Relation to Subscriber:Self Name:Santiago Perez Payer ID:[id number] Group ID:[id number] Type:Medicaid Address: [address] Member Subscriber Plan / Payer (Ef fective 2017-Present) Name:Santiago Perez Relation to Subscriber:Self Name:Santiago Perez Payer ID:[id number] Group ID:[id number] Type:Medicaid Address: [address] [facility] [employer] Care Teams Plumbing Mechanic Relationship Specialty Start Date End Date Unknown, Unknown, PCP - General 09/11/17 Additional Source Comments The information contained in this document represents components of the legal health record. It is not the complete legal health record.[facility]
[2024-12-18] MEDS: Ketorolac Tromethamine 15 MG/ML VIAL IM (13:56)
[2024-12-18 14:24] VITALS: BP 154/85; PULSE 71; RESP 16; TEMP 36.6; O2SAT 96
== END 2024-12-18 14:25 | disposition home or self-care (01) ==
PROVIDERS: Emergency Provider Emergency Medicine Emergency Medical Services
DX: M25.562 Pain in left knee (principal)
CPT/HCPCS: 73564; 96372; 99284; J1885

== ENCOUNTER → 2024-12-18 12:37 | Outpatient (BNV) | payer OTHER, SELFPAY | PROVIDERS: Emergency Provider Emergency Medicine Emergency Medical Services; Visit Provider Radiology Diagnostic Radiology | DX: M25.562 Pain in left knee (principal) | CPT/HCPCS: 73564 ==

== ENCOUNTER 2025-05-08 14:29 | Emergency (ER) | payer OTHER, SELFPAY ==
--- NOTE | ~2025-05-08 | XR_ITS ---
CLINICAL HISTORY: cough x 2 mos 2 view chest x-ray. Comparison: CR/SR - XR CHEST 2 VIEWS - 07/16/24 17:59 EST Findings: Normal lung volumes. Lungs are clear. No pneumothorax or pleural effusion. Heart size normal. No passive venous congestion. No midline shift or tracheal deviation. No acute fracture. Impression: 1. No acute cardiopulmonary disease. This document has been electronically signed by: Francesco Schulz MD on 05/08/2025 16:18:25
[2025-05-08 14:33] VITALS: BP 180/87; PULSE 87; RESP 18; TEMP 37.1; O2SAT 96; BMI 52.5
--- NOTE | 2025-05-08 14:33 | ED_ITS ---
HPI - General Adult General Chief complaint: Upper Respiratory Symptoms Stated complaint: nasty cough Time Seen by Provider: 05/08/25 20:07 Source: patient Mode of arrival: ambulatory Limitations: no limitations History of Present Illness ED Provider: Chaparro MELGAR HPI narrative: The patient is a 54-year-old male with a history of morbid obesity, DERRICK, hypertension, and diabetes managed with metformin, presenting to the ED for evaluation of a chronic recurring cough. The patient reports for the past 2 months he has been experiencing daily painful cough intermittently productive of whitish-yellow sputum, without associated hemoptysis, chest pain, shortness of breath at rest, abdominal pain, nausea, vomiting, fever/chills, recent sick contacts, or recent trauma. 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 The patient reports he uses humidified oxygen for CPAP, but also uses FiO2 at home at night when sleeping from a concentrator which does not use a humidifier. Patient reports he takes blood pressure medication but can not recall the name, patient was asked specifically if he takes lisinopril or another MADI inhibitor and patient stated that was not the name of his medication. The patient reports he is been attempting Robitussin with no significant relief. The patient reports cough is painful primarily in his mid scapular area on the right, denies reproduction of pain with palpation or movement. The patient denies any recent travel, denies lower extremity swelling or other pain. Related Data Previous Rx's ?Medication ?Instructions ?Recorded cyclobenzaprine 5 mg tablet 5 mg PO TID PRN muscle spa sm #10 04/02/24 tabs diclofenac sodium 1 % topical gel 2 g topical QID #100 grams 04/02/24 oseltamivir 75 mg capsule (Tamiflu) 75 mg PO Q12H 5 da ys #10 caps 07/16/24 ciprofloxacin HCl 0.3 % eye drops 2 drp ophthalmic-Lef t DIRECTED 09/12/24 #10 mL ibuprofen 600 mg tablet 600 mg PO Q8H PRN fever or p ain 05/08/25 #30 tabs prednisone 20 mg tablet 60 mg (3 x 20 mg) PO DAILY 5 days 05/08/25 #15 tabs Allergies Allergy/AdvReac Type Severity Reaction Status Date / Time No Known Allergies (No Known Allergy Verified 05/08/25 14:37 Allergies*) Review of Systems 2 Review of Systems: Yes all other systems are reviewed and are negative PMFSH Social History Social History Advance Directives: No Advance Directives Information Provided: No Physical Exam ED Vital Signs: Vital Signs - 24 hr 05/08/25 14:33 05/08/25 21:02 Temperature 98.7 F Pulse Rate 87 78 Respiratory Rate 18 22 H Blood Pressure 180/87 H Pulse Oximetry 96 Oxygen Delivery Method Room Air BMI result Body Mass Index 52.5 CONSTITUTIONAL: The patient is morbidly obese, but otherwise appears non-toxic, well nourished and in no acute distress. Vital signs as documented. HEAD: Atraumatic, normocephalic. EYES: EOMs grossly intact, pupils equal, conjunctiva clear, no exudate. ENT: Nares patent, no discharge. Airway patent, no audible stridor, visible mucosa is pink and moist without noted lesions. NECK: Trachea is midline, no obvious masses or gross abnormalities. CHEST: Symmetric movement, normal appearance. LUNGS: LS present with mild diffuse expiratory wheezing, no rales or rhonchi. Non-labored work of breathing at rest. CARDIAC: Regular Rhythm, S1/S2 appreciated, no murmurs, rubs or gallops. ABDOMEN: Abdomen soft and non-tender x4 quadrants, no palpable masses or organomegaly. : Deferred. EXTREMITIES: Normal tone, moves all extremities spontaneously without reported pain. No obvious acute injury or deformity noted. NEURO: Alert and oriented x3, CN II-XII appear grossly intact. Cerebellar Functioning grossly intact. No obvious sensory or motor deficits. Speech clear and appropriate. PSYCH: normal affect, appropriate eye contact, fluid speech, with appropriate response to questioning. No reported suicidality or homicidality. SKIN: Warm, dry, color appropriate, normal turgor. No rashes noted. Course Course Course Narrative: This is a rapid medical exam performed by Fortino Spangler NP: Additional HPI, ROS, PE not included below will be deferred to primary provider. Patient is a 54y/o M presenting to the ED with complaint of productive cough x 2 mos. Sputum is white/yellow. Plan: labs, CXR Medications Administered Discontinued Medications Generic Name Dose Route Start Last Admin Trade Name Freq PRN Reason Stop Dose Admin Albuterol Sulfate 5 mg/ 0 mg 05/08/25 21:02 05/08/25 21:11 Albuterol/Ipratropium 3 ml INHALE 05/08/25 21:03 7.5 each ONCE ONE Administration Ibuprofen 600 mg 05/08/25 20:25 05/08/25 21:12 Ibuprofen 600 Mg Tablet PO 05/08/25 20:26 600 mg ONCE ONE Administration Prednisone 60 mg 05/08/25 20:25 05/08/25 21:12 Prednisone 20 Mg Tablet PO 05/08/25 20:26 60 mg ONCE ONE Administration Medical Decision Making Medical Decision Making MDM Narrative: 9:00 PM 05/08/2025 (Roland MELGAR): The patient is a 54-year-old male with a history of morbid obesity, DERRICK, hypertension, and diabetes managed with metformin, presenting to the ED for evaluation of a chronic recurring cough. The patient reports for the past 2 months he has been experiencing daily painful cough intermittently productive of whitish-yellow sputum, without associated hemoptysis, chest pain, shortness of breath at rest, abdominal pain, nausea, vomiting, fever/chills, recent sick contacts, or recent trauma. 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 The patient reports he uses humidified oxygen for CPAP, but also uses FiO2 at home at night when sleeping from a concentrator which does not use a humidifier. Patient reports he takes blood pressure medication but can not recall the name, patient was asked specifically if he takes lisinopril or another MADI inhibitor and patient stated that was not the name of his medication, no anti-hypertensives found on chart/home med review. The patient reports he is been attempting Robitussin with no significant relief. The patient reports cough is painful primarily in his mid scapular area on the right, denies reproduction of pain with palpation or movement. The patient denies any recent travel, denies lower extremity swelling or other pain. On exam the patient has mild expiratory wheezing diffusely, no rhonchi. Remainder of exam is benign. The patient's laboratory evaluation shows no leukocytosis, anemia, electrolyte abnormality, or VIN. LFTs are unremarkable. BNP is normal. The patient's viral swabs are negative for COVID, and influenza. Patient's strep swab is negative. The patient's chest x- ray shows no acute cardiopulmonary process. The patient is low risk for PE by Wells criteria, however fails PERC criteria due only to age. We will obtain a D-dimer to rule out PE. The patient will be treated with bronchodilator protocol, prednisone, and anti-inflammatories. Pending improvement in symptoms and unremarkable D-dimer, the patient will be discharged with a 5 day prednisone burst and instructions to follow up with PCP for PFTs. 9:33 PM 05/08/2025 (Roland MELGAR): The patient's D-dimer is negative, patient will be discharged with care plan as outlined above. Admission/Observation Consideration of admission/observation: Escalation of care including admission/observation considered Lab Data 05/08/25 15:03 05/08/25 15:03 Labs: Lab Results 05/08/25 05/08/25 05/08/25 Range/Units 15:03 15:04 21:05 WBC 8.3 (4.8-10.8) X10*3/uL RBC 4.88 (4.60-5.80) X10*6/uL Hgb 14.5 (14.0-18.0) g/dl Hct 43.2 (42.0-52.0) % MCV 88.5 (80.0-98.0) fL MCH 29.7 (27.0-33.0) pg MCHC 33.6 (31.0-36.0) g/dl RDW 13.3 (11.0-16.0) % Plt Count 235 (160-400) X10*3/uL MPV 9.7 (9.4-12.4) fL Immature Gran % (Auto) 0.2 (0.0-0.4) % Neut % (Auto) 62.5 (45-73) % Lymph % (Auto) 27.3 (20-40) % [place] % (Auto) 7.4 (2-11) % Eos % (Auto) 1.9 (0-4) % Baso % (Auto) 0.7 (0-2) % Lymph # (Auto) 2.3 (1.2-4.9) X10*3/uL [place] # (Auto) 0.6 (0.1-1.2) X10*3/uL Eos # (Auto) 0.2 (0.0-0.4) X10*3/uL Baso # (Auto) 0.1 (0.0-0.2) X10*3/uL Abs Immat Gran (auto) 0.02 (0.00-0.03) X10*3/uL Absolute Neuts (auto) 5.2 (2.0-8.3) x10*3/uL Absolute Nucleated RBC 0.000 (0.0-0.012) X10*3/uL Nucleated RBC % (auto) 0.0 (0.0-0.2) /100WBC D-Dimer High Sensitivty 152 NG/ML Sodium 142 (135-145) mmol/L Potassium 4.1 (3.3-5.1) mmol/L Chloride 108 (96-108) mmol/L Carbon Dioxide 25 (22-29) mmol/L Anion Gap 13 (12-20) BUN 11 (9-16) mg/dL Creatinine 0.67 (0.5-1.4) mg/dL Estim Creat Clear Calc 191.8 Estimated GFR > 60 Random Glucose 91 (60-115) mg/dL Calcium 8.9 (8.4-10.2) mg/dL Total Bilirubin 0.6 (0.0-1.0) mg/dL AST 27 (5-37) U/L ALT 29 (0-40) U/L Alkaline Phosphatase 100 (39-117) U/L NT-Pro-B Natriuret Pep 52.8 (<300) pg/mL Total Protein 7.2 (6.5-8.0) g/dL Albumin 3.9 (3.5-5.0) g/dL COVID-19 (ASTRID) Negative (Negative) COVID-19 Clin Com See Note Influenza Type A (LATANYA) Negative (Negative) Influenza Type B (LATANYA) Negative (Negative) Influenza A & B Note See Note S. pyogenes GrpA LATANYA Negative (Negative) Radiology Impression Discussion of test interpretation with radiology: I have reviewed the radiologist's reading. Radiologist Impression: 2 view chest x-ray. Comparison: CR/SR - XR CHEST 2 VIEWS - 07/16/24 17:59 EST Findings: Normal lung volumes. Lungs are clear. No pneumothorax or pleural effusion. Heart size normal. No passive venous congestion. No midline shift or tracheal deviation. No acute fracture. Impression: 1. No acute cardiopulmonary disease. This document has been electronically signed by: Francesco Schulz MD on 05/08/2025 16:18:25 Prescription Management I considered prescription management with: Pain Medication Discharge Plan Discharge Clinical Impression: Bronchitis Patient Disposition: Home, Self-Care Instructions: Acute Bronchitis (ED) Additional Instructions: Thank you for choosing [facility] Emergency Department for your care today. Thankfully your laboratory evaluation, chest x-ray, viral swab, and exam were all reassuring. There was no evidence of an acute bacterial, metabolic, coagulopathic (blood clot), or other dangerous cause for your cough over the past 2 months. You were negative for COVID, influenza, and Streptococcus. At this time there is no indication for admission to the hospital or continued ED observation, and it is safe to discharge you home. Your lung sounds did have some expiratory wheezing, which may indicate this is either an acute or new onset of some chronic restrictive airway disease, also commonly known as COPD or emphysema. As such we are treating you with prednisone and anti-inflammatories which should improve the congestion in your lungs, and reduce your urge to cough. It is extremely important however to follow up with the your primary care provider to request outpatient pulmonary function testing (PFTs) to identify if this is an acute inflammatory response, versus an undiagnosed chronic restrictive airway disease. Please take prednisone as prescribed until it is finished. Please take 600 mg of ibuprofen every 8 hours for the next 3-5 days to reduce inflammation. Please continue taking all your other regularly prescribed medications. Please review your blood pressure medication and identify its name, there are certain blood pressure medications called Madi inhibitors which can cause chronic nagging cough. If you are taking any of these medications please consult your primary care provider about changing them to an alternative. It is extremely important however to follow up with the your primary care provider to request outpatient pulmonary function testing (PFTs) to identify if this is an acute inflammatory response, versus an undiagnosed chronic restrictive airway disease. Please continue following up with your primary care physician for re-evaluation, additional management of your symptoms, and continued preventative care. If you do not have a primary care physician, please call the [facility] at [phone] to establish a new primary care physician. While waiting to establish your new primary care physician, you can call our Walk-in [facility] at [phone] for non-emergency needs. Please return to the emergency department if you develop a severe or sudden change in your symptoms, a fever over 100.4 that does not improve with Tylenol or Ibuprofen, recurrent vomiting, or any other new or worsening symptoms or concerns. Prescriptions: New prednisone 20 mg tablet 60 mg PO DAILY 5 Days Qty: 15 0RF ibuprofen 600 mg tablet 600 mg PO Q8H PRN (Reason: fever or pain) Qty: 30 0RF No Action cyclobenzaprine 5 mg tablet 5 mg PO TID PRN (Reason: muscle spasm) Qty: 10 0RF diclofenac sodium 1 % gel 2 g topical QID Qty: 100 0RF Rx Instructions: apply to right shoulder oseltamivir [Tamiflu] 75 mg capsule 75 mg PO Q12H 5 Days Qty: 10 0RF ciprofloxacin HCl 0.3 % drops 2 drp ophthalmic-Left DIRECTED Qty: 10 0RF Rx Instructions: put 2 drps in affected eye(s) every 2hr up to 8 times/day x2days; then 4 times/day x5days into the left eye as directed; Print Language: Liberian
[2025-05-08 15:11] LABS: MANUAL DIFF FLAG NO
[2025-05-08 15:13] LABS: Hematocrit 43.2 % (42.0-52.0); Hemoglobin 14.5 g/dl (14.0-18.0); Imm Gran Abs Auto 0.02 X10*3/uL (0.00-0.03); Imm Gran Pct Auto 0.2 % (0.0-0.4); Lymphocytes Absolute Auto 2.3 X10*3/uL (1.2-4.9); Mean Corpuscular HGB Conc 33.6 g/dl (31.0-36.0); Mean Corpuscular Hemoglobin 29.7 pg (27.0-33.0); Mean Corpuscular Volume 88.5 fL (80.0-98.0); NRBC Abs Auto 0.000 X10*3/uL (0.0-0.012); NRBC Pct Auto 0.0 /100WBC (0.0-0.2); Platelet Count 235 X10*3/uL (160-400); Red Blood Count 4.88 X10*6/uL (4.60-5.80); White Blood Count 8.3 X10*3/uL (4.8-10.8)
[2025-05-08 15:28] LABS: COVID-19 Test Negative (Negative); IDNOW Serial# 58CA691E
[2025-05-08 15:29] LABS: IDNOW Serial# 55D5AD1C; Influenza B2 Negative (Negative)
[2025-05-08 15:29] LABS: IDNOW Serial# 08D9AD1C; Strep A Nucleic Acid Negative (Negative)
[2025-05-08 15:31] LABS: Alanine Aminotransferase 29 U/L (0-40); Albumin Level 3.9 g/dL (3.5-5.0); Anion Gap 13 (12-20); Aspartate Amino Transferase 27 U/L (5-37); Blood Urea Nitrogen 11 mg/dL (9-16); Calcium 8.9 mg/dL (8.4-10.2); Carbon Dioxide 25 mmol/L (22-29); Chloride 108 mmol/L (96-108); Creatinine Clr Calc Pharmacy 191.8; Estimated Glomerular Filt Rate > 60; Potassium 4.1 mmol/L (3.3-5.1); Sodium 142 mmol/L (135-145); Total Protein 7.2 g/dL (6.5-8.0)
[2025-05-08 17:44] LABS: NT Pro B Type Natriuretic Pept 52.8 pg/mL (<300)
--- OUTSIDE RECORDS SUMMARY | 2025-05-08 19:52 | XMS_ITS | Clinical Summary ---
Author Organization [facility] iance Address [address] [place] [address] Care Team Providers Care Hand Ii Tube Bender Name Role Phone Elizabeth Mukherjee MD Unavailable [phone] Allergies No known active allergies Medications No known medications Social History Tobacco Use Types Packs/Day Years Used Date Smoking Tobacco: Never Smokeless Tobacco: Never Alcohol Use Standard Drinks/Week Comments No 0 (1 standard drink = 0.6 oz pur e alcohol) Sex and Gender Information Value Date Recorded Sex Assigned at Not on file Legal Sex Male 6:32 PM EDT Gender Identity Not on file Sexual Orientation Not on file Last Filed Vital Signs Vital Sign Reading Time Taken Comments Blood Pressure 133/78 05/23/2016 10:20 PM EDT Pulse 87 05/23/2016 10:20 PM EDT Temperature 37.1 C (98.7 F) 05/23/2016 10:20 PM EDT Respiratory Rate 18 05/23/2016 10:20 PM EDT Oxygen Saturation 98% 05/23/2016 10:20 PM EDT Inhaled Oxygen Concentration - - Weight 163.3 kg (360 lb) 05/23/2016 10:20 PM EDT Height - - Body Mass Index - - Plan of Treatment Not on file Insurance * Guarantor: SAVANNAH CARLTON Account Type Relation to Patient Date of Phone Billing Address Personal/Family [facility] Care Teams Hand Ii Tube Bender Relationship Specialty Start Date End Date Elizabeth Mukherjee MD [address] [place] [address] PCP - Insurance PCP 05/23/16
--- OUTSIDE RECORDS SUMMARY | 2025-05-08 19:52 | XMS_ITS | Clinical Summary ---
Author Organization [facility] Address [address] [place] [phone] Phone Care Team Providers Care Warehouse Order Filler Name Role Phone Unknown, Unknown Primary Care [...] Answer Date Recorded No 12/16/2022 No 12/16/2022 Reliable internet access [...] 85 06/24/2022 6:51 AM EST Temperature 36.4 C (97.5 F) 06/23/2022 10:56 PM EST Respiratory Rate 20 06/24/2022 6:51 AM EST [...] HEPATITIS C SCREENING 1986 HIV ONE-TIME SCREENING (18-65 YEARS) 1986 SCREENING FOR DIABETES 11/06/2003 Adult Td,Tdap Booster 07/23/2009 07/23/1999 COLOGUARD 2013 COLONOSCOPY 2013 COLORECTAL CANCER SCREENING 2013 FIT TEST 2013 FOBT 2013 SIGMOIDOSCOPY 2013 VIRTUAL COLONOSCOPY 2013 RSV VACCINE (1 - Risk 50-74 years 1-dose series) 2018 ZOSTER VACCINES (1 of 2) 2018 PNEUMOCOCCAL VACCINES (50+ years) (2 of 2 - PCV) 04/21/2021 04/21/2020 INFLUENZA VACCINE (#1) 2025 0, 03/26/2018, 03/12/2018, Additional history exists COVID-19 VACCINE (2 - 2024- season) 2025 04/26/2021 SMOKING STATUS SCREENING (Once After 26 Yrs) Completed 06/23/2022 HEPATITIS A [...] topic Medical Devices Not on file [facility] [address] [facility] Cutefund [facility] CAREPL[facility] Premier GroceryUPSTATE [facility]IV[facility]ITY [facility]ITAL[facility] [place] [address] Member Subscriber Plan / Payer (Ef fective 2017-Present) Name:Santiago Perez Relation to Subscriber:Self Name:Santiago Perez Payer ID:[id number] Group ID:[id number] Type:Medicaid Address: [address] Member Subscriber Plan / Payer (Ef fective 2017-Present) Name:Santiago Perez Relation to Subscriber:Self Name:Santiago Perez Payer ID:[id number] Group ID:[id number] Type:Medicaid Address: [address] [facility] [address] [place], [place] [address]PLUS [facility] [place] [address] [facility] [place] [address] CAREPLUS [facility] [employer] COMPENSATION AM[employer]ARD[employer]NORGUARD INSURANCE Care Teams Warehouse Order Filler Relationship Specialty Start Date End Date Unknown, Unknown, PCP - General 09/11/17 Additional Source Comments The information contained in this document represents components of the legal health record. It is not the complete legal health record.[facility]
--- OUTSIDE RECORDS SUMMARY | 2025-05-08 19:52 | XMS_ITS | Clinical Summary ---
Author Organization [facility] Address [address] [facility] [place] [address] Care Team Providers Care Picc Nurse Name Role Phone Mike Nieto MD Unavailable Rachelle Al MD Unavailable [phone] Sarbjit Bloom MD Primary Care Provider [phone] Allergies Active Allergy Reactions Criticality Noted Date Comments Morphine Other 11/02/2022 IV morphine - Burning sensation - not well tolerated Medications sodium chloride 0.9 % nebulizer solutionIndicati ons:Keratoconus of both eyes Take 3 mL by nebulization in the morning. 90 mL 11 2 Active timolol (Timoptic) 0.5 % ophthalmic solutionIndicati ons:Keratoconus of both eyes Administer 1 drop into the left eye in the morning and at bedtime. 5 mL 5 2 Active metFORMIN XR (Glucophage-XR) 500 mg 24 hr tablet Take 1 tablet by mouth once daily. 9 Active FreeStyle glucose monitoring (FreeStyle Lite Meter) kit use daily. dx E11.9. dm2. 8 Active lancets (FreeStyle Lancets) 28 gaugeIndications :Pre-diabetes 1 Lancet twice daily. 100 each 3 3 Active FreeStyle Lite Strips stripsIndication s:Pre-diabetes USE TWICE DAILY DISCUSSED 100 strip 3 3 Active polyethylene glycol (GoLYTELY) 236-22.74-6.74 -5.86 gram solutionIndicati ons:Colon cancer screening Consume according to prep instructions provided by GI clinic 4000 mL 3 Active chlorthalidone (Hygroton) 25 mg tabletIndication s:Primary hypertension TAKE 1 TABLET BY MOUTH EVERY DAY 90 tablet 3 4 Active losartan (Cozaar) 100 mg tabletIndication s:Primary hypertension TAKE 1 TABLET BY MOUTH EVERY DAY IN THE MORNING 90 tablet 3 4 Active tamsulosin (Flomax) 0.4 mg 24 hr capsuleIndicatio ns:Lower urinary tract symptoms (LUTS) TAKE 1 CAPSULE BY MOUTH ONCE DAILY. 90 capsule 3 4 Active Active Problems Problem Noted Date Diagnosed Date Accident due to mechanical fall without injury 0 02/04/2023 Assessment & Plan (02/04/2023 4:40 PM EDT): He still has pain in his back; he's been sleeping on the floor at times. This has just been ongoing since the work/fall accident in earlier 2022. The pain comes and goes but when it comes it really stays. Has not been able to really done at physical therapy. He's taking aleve 200 mg x2 at night, likely exacerbating his HTN, of which he is aware. The NSAID provides relief. Referring back to PT. Continue NSAIDs PRN. Healthcare maintenance 11/02/2022 Assessment & Plan (02/04/2023 4:34 PM EDT): Lab Results Component Value Date CHOL 139 11/02/2022 HDL 41 11/02/2022 LDLCALC 71 11/02/2022 TRIG 136 11/02/2022 HGBA1C 6.3 (H) 11/02/2022 Colonoscopy: first scope inadequate in 2019 - ordered repeat today Prostate: PSA was normal Smoking: deferred LDCT: annual screening for lung cancer w/ LDCT, 50 to 80 years, >= 20 PYs, quit < 15 years ago AAA: [place] for men 65-75 who have ever smoked Falls: exercise interventions to prevent falls in community-dwelling adults 65 years or older who are at increased risk for falls. PHQ9: Over the past 2 weeks, how often have you been bothered by any of the following problems? Little interest or pleasure in doing things: Not at all Feeling down, depressed, or hopeless: Not at all Patient Health Questionnaire-2 Score: 0 Assessment & Plan (11/02/2022 4:31 PM EDT): Screening labs No results found for: CHOL, HDL, LDLCALC, TRIG, HGBA1C, GC, CT, HEPCAB, [id number] Colonoscopy: screening for colorectal cancer in adults aged 45 to 75 years Prostate: individualized; no population screening Smoking: deferred LDCT: annual screening for lung cancer w/ LDCT, 50 to 80 years, >= 20 PYs, quit < 15 years ago AAA: [place] for men 65-75 who have ever smoked Falls: exercise interventions to prevent falls in community-dwelling adults 65 years or older who are at increased risk for falls. PHQ9: Over the past 2 weeks, how often have you been bothered by any of the following problems? Little interest or pleasure in doing things: Not at all Feeling down, depressed, or hopeless: Not at all Patient Health Questionnaire-2 Score: 0 Pre-diabetes 11/02/2022 Assessment & Plan (02/04/2023 4:38 PM EDT): Recheck at next appt. Assessment & Plan (11/02/2022 4:31 PM EDT): Previously on metformin. For now will hold awaiting A1c check. Patient also being referred to pharmd for possible glp1a. Primary hypertension 11/02/2022 Assessment & Plan (02/04/2023 4:39 PM EDT): Continue home monitoring. Continue chlorthalidone and losartan. Can add amlodipine at next visit if BP continues to be elevated. Assessment & Plan (11/02/2022 4:30 PM EDT): Continue home monitoring. , Willa, by phone, reported that his home systolic is typically less than 140 and the diastolic goes around 90. She reported he is not great about taking his medications. I encouraged medication compliance in lieu of medication adjustment. They will CTM BP at home. He will start taking his medications more reliably. F/u in 3 months. DERRICK (obstructive sleep apnea) 01/23/2022 Assessment & Plan (02/04/2023 4:36 PM EDT): Past couple of days he's been dizzy when he takes his CPAP mask off. This resolves in short order. He replaced his own mask recently as he felt it wasn't fitting properly. Sleep medicine referral pending. Assessment & Plan (11/02/2022 4:26 PM EDT): Referral to sleep for CPAP management. CBC to check for chronic hypoxia if DERRICK is not being well managed. Organic erectile dysfunction 01/23/2022 Morbid (severe) obesity due to excess calories 0 01/23/2022 Assessment & Plan (02/04/2023 4:41 PM EDT): Discussed his relationship to food, prior appointments with bariatric surgery, therapy, and starting glp1a. He feels guilty when eating. Referral to therapy to work on having a healthy relationship with food. RTC in 3 months at which point hopefully we will have access to GLP1a again. If he is able to lose some weight on medication, we will refer back to bariatric surgery. Also recommended he continue biking. Assessment & Plan (11/02/2022 4:25 PM EDT): Referral to pharmd for glp1a. 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 We recommend continuing the 7 days treatment with both drugs. Also continuing eye drops and recommend to patch the right eye at night. He was advised to contact us if needed. Keratitis 12/21/2021 Keratoconus of both eyes 12/20/2021 Resolved Problems Problem Noted Date Diagnosed Date Resolved Date BMI 50.0-59.9, adult 01/23/2022 023 Assessment & Plan (11/02/2022 4:27 PM EDT): Referral to pharmd for glp1a BMI 60.0-69.9, adult 01/23/2022 023 Excessive daytime sleepiness 01/23/2022 11/02/2022 Overview (01/23/2022): - Patient has symptoms typical of obstructive sleep apnea including daytime fatigue, snoring. Physical exam including Talbot tongue position and Mallampatti score are suggestive of obstructive sleep apnea- would need diagnotic PSG for evaluation Encounters Date Type Department Care Team Description 03/11/2025 Telephone [facility] Primary Care [address] [place] [address] Corrie Doll Population Health; Annual Exam from Last 3 Months Immunizations Immunization Administration Dates Next Due Influenza, High-dose Seasona l, Quadrivalent, Preservative Free 04/21/2020 Influenza, Unspecified 03/26/2018,05/02/2017 Influenza, injectable, quadrivalent, preservativ e free 03/12/2018 Influenza, split virus, trivalent, PF 03/18/2017 Pneumococcal Polysaccharide PPV23 04/21/2020 Td (adult), unspecified 07/23/1999 Social History Tobacco Use Types Packs/Day Years Used Date Smoking Tobacco: Never Smokeless Tobacco: Never Tobacco Cessation:Counseling Given: Not Answered Alcohol Use Standard Drinks/Week Comments Never 0 (1 standard drink = 0.6 oz pur e alcohol) AUDIT-C Answer Date Recorded Q1: How often do you have a drink containing alcohol? Never 11/02/2022 Q2: How many drinks containi ng alcohol do you have on a typical day when you are drinking? Patient does not drink Q3: How often do you have si x or more drinks on one occasion? Never 11/02/2022 PHQ-2 Answer Date Recorded Patient Health Questionnaire-2 Score 0 02/04/2023 [place] [facility] - Occupational Stress Questionnaire Answer Date Recorded Do you feel stress - tense, restless, nervous, or anxious, or unable to sleep at night because your mind is troubled all the time - these days? To some extent 11/02/2022 Hunger Vital Sign Answer Date Recorded Within the past 12 months, y ou worried that your food would run out before you got the money to buy more. Never true 02/05/20 23 Ran Out of Food in the Last Year Not on file 02/04/2023 PRAPARE - Transportation Answer Date Re corded Lack of Transportation (Medical) Not on file 02/04/2023 In the past 12 months, has l ack of transportation kept you from meetings, work, or from getting things needed for daily living? No 02/04/2023 Housing Stability Vital Sign Answer Teo e Recorded Unable to Pay for Housing in the Last Year Not o n file 02/04/2023 Number of Places Lived in the Last Year Not on f ile 02/04/2023 In the last 12 months, was t here a time when you did not have a steady place to sleep or slept in a custodial (including now)? No 02/04/2023 Sex and Gender Information Value Date Recorded Sex Assigned at Male 02/04/2023 2:17 PM EDT Legal Sex Male 4:44 AM EST Gender Identity Male 02/04/2023 2:17 PM EDT Sexual Orientation Straight 02/04/2023 2: 17 PM EDT Last Filed Vital Signs Vital Sign Reading Time Taken Comments Blood Pressure 144/78 11/13/2023 6:30 PM EDT Pulse 102 11/13/2023 6:30 PM EDT Temperature 37 C (98.6 F) 11/13/2023 2:48 PM EDT Respiratory Rate 21 11/13/2023 4:30 PM EDT Oxygen Saturation 95% 11/13/2023 6:30 PM EDT Inhaled Oxygen Concentration - - Weight 182.8 kg (403 lb) 02/04/2023 2:13 PM EDT Height 175.3 cm (5' 9 ) 02/04/2023 2:13 PM EDT Body Mass Index 59.51 02/04/2023 2:13 PM EDT Plan of Treatment Health Maintenance Due Date Last Done Comments CT Colonography 1968 FIT-DNA 1968 FIT 1968 FOBT 1968 HIV Screening 1968 Sigmoidoscopy 1968 MMR Vaccines (1 of 1 - Standard series) 1969 Hepatitis B Vaccines (1 of 3 - 19+ 3-dose series) 11/06/1987 DTaP/Tdap/Td Vaccines (1 - Tdap) 07/24/1999 07/23/1999 Zoster Vaccines (1 of 2) 2018 Pneumococcal Vaccine: 50+ Years (2 of 2 - PCV) 04/21/2021 04/21/2020 Depression Screening 07/22/2024 02/04/2023 COVID-19 Vaccine (3 - season) 2025 11/22/2021, 04/26/2021 Influenza Vaccine (#1) 2025 0, 03/26/2018, 03/12/2018, Additional history exists Diabetes Screening 11/02/2025 11/02/2022 Lipid Panel 11/03/2027 11/02/2022 Colonoscopy 03/16/2029 03/16/2019 Colorectal Cancer Screening 03/16/2029 Hepatitis C Screening Completed 04/21/2020 Pneumococcal Vaccine: Pediatrics (0 to 5 Years) and At-Risk Patients (6 to 49 Years) Discontinued 04/21/2020 Diabetes: Retinopathy Screening Discontinued 12/21/2021, 12/20/2021, 03/28/2018 Diabetes: Hemoglobin A1C Discontinued 023, 10/11/2021, 03/22/2020, Additional history exists HIB Vaccines Aged Out No longer eligi ble based on patient's age to complete this topic HPV Vaccines Aged Out No longer eligi ble based on patient's age to complete this topic Hepatitis A Vaccines Aged Out No long er eligible based on patient's age to complete this topic IPV Vaccines Aged Out No longer eligi ble based on patient's age to complete this topic Meningococcal B Vaccine Aged Out No l onger eligible based on patient's age to complete this topic Meningococcal Vaccine Aged Out No natacha fabiana eligible based on patient's age to complete this topic Rotavirus Vaccines Aged Out No longer eligible based on patient's age to complete this topic Procedures Procedure Name Priority Date/Time Associated Diagnosis Comments HEMOGLOBIN A1C Routine 11/02/2022 4:38 PM EDT Pre-diabetes Healthcare maintenance LIPID PANEL Routine 11/02/2022 4:38 PM EDT Healthcare maintenance from Last 3 Months or Most Recently Relevant to Health Maintenance Results * (ABNORMAL) Hemoglobin A1c (11/02/2022 4:38 PM EDT) HEMOGLOBIN A1C % (INT/EXT) 6.3(H) <5.6 % 11/02/2022 6:55 PM EDT [facility] Comment: Non-diabetic: < 6.0 % Diabetic: Goal: < 7.0% Action suggested: > 8.0% Blood Venous blood specimen / Unknown Venipuncture / Unknown 11/02/2022 4:38 PM EDT 11/02/2022 4:52 PM EDT us Sarbjit Bloom MD LAB BLOOD ORDERABLES Final Result Performing Organization Address City/State/[facility] Co de Phone Number [facility] [address] * Lipid panel (11/02/2022 4:38 PM EDT) Triglycerides 136 <=150 mg/dL 11/02/2022 6:56 PM EDT [facility] Cholesterol 139 <=200 mg/dL 11/02/2022 6:56 PM EDT [facility] HDL cholesterol 41 >=40 mg/dL 6:56 PM EDT [facility] LDL cholesterol, calculated 71 0 - 130 mg/dL 11/02/2022 6:56 PM EDT [facility] Cholesterol/HDL Ratio 3.4 11/02/2022 6:56 PM EDT [facility] Non-HDL Calculation 98 <160 mg/dL 11/02/2022 6:56 PM EDT [facility] Comment:Non-HDL cholesterol is simply total cholesterol minus HDL cholesterol. Its major advantage over calculated LDL cholesterol is that it can be run on non- fasting specimens. Also, it includes all forms of atherogenic cholesterols. It is now the preferred marker on many websites for calculating cholesterol cardiac risk. Blood Venous blood specimen / Unknown Venipuncture / Unknown 11/02/2022 4:38 PM EDT 11/02/2022 4:52 PM EDT us Sarbjit Bloom MD LAB BLOOD ORDERABLES Final Result [facility] [address] [place] [address], from Last 3 Months or Most Recently Relevant to Health Maintenance Insurance [facility] Care Teams Picc Nurse Relationship Specialty Start Date End Date Sarbjit Bloom MD [address] [place] [id number] PCP - General Internal Medicine 04/24/22 Mike Nieto MD 08/25/21 Rachelle Al MD [facility] [address] [place] [address] 08/25/21
--- OUTSIDE RECORDS SUMMARY | 2025-05-08 19:52 | XMS_ITS | Encounter Summary ---
Author Organization [facility] Address [address] [facility] [address] [place] [phone] Phone Care Team Providers Care Business Support Coordinator Name Role Phone Elizabeth Mukherjee MD Primary Care Provider [phone] Brendan Mckeon MD Primary Care Provider [phone] Unknown, Unknown Primary Care Provider Alesia pimentel Encounter Details Date Type Department Care Team (Late st Contact Info) Description 10/25/2016 Ancillary Orders BWF Dialysis Nursing [address] [place] [address] Juan Solitario MD [address] [facility] [address] [place] [id number] Pain Social History Tobacco Use Types Packs/Day Years Used Date Smoking Tobacco: Never Assessed Sex and Gender Information Value Date Recorded Sex Assigned at Male 09/11/2017 4:40 PM EST Legal Sex Male 5:01 PM EST Gender Identity Male 09/11/2017 4:40 PM EST Sexual Orientation Not on file documented as of this encounter Plan of Treatment Not on file documented as of this encounter Results * XR KNEE 3 VIEW (BILATERAL) (10/25/2016 3:12 PM EDT) Anatomical Region Laterality Modality Knee Bilateral, Knee Right, Knee Left Computed Radiography 10/25/2016 3:12 PM EDT Impressions 10/25/2016 3:41 PM EDT FINDINGS/IMPRESSION: Right knee: No acute fracture or dislocation. Minimal hypertrophic changes medial tibiofemoral compartment. Cartilage spaces are preserved on nonweightbearing images. No significant joint effusion. Quadriceps enthesopathy. Soft tissues unremarkable. Left knee: No acute fracture or dislocation. Minimal hypertrophic changes of the medial tibiofemoral compartment. Cartilage spaces are preserved on nonweightbearing images. Suboptimal evaluation for joint effusion secondary to positioning. Quadriceps enthesopathy. Soft tissues are unremarkable. Narrative 10/25/2016 3:41 PM EDT INDICATION: Knee pain. TECHNIQUE: AP, lateral and sunrise views both knees COMPARISON: None Procedure Note Small, Leigha Rizo MD - 10/25/2016 INDICATION: Knee pain. TECHNIQUE: AP, lateral and sunrise views both knees COMPARISON: None IMPRESSION: FINDINGS/IMPRESSION: Right knee: No acute fracture or dislocation. Minimal hypertrophic changes medial tibiofemoral compartment. Cartilage spaces are preserved on nonweightbearing images. No significant joint effusion. Quadriceps enthesopathy. Soft tissues unremarkable. Left knee: No acute fracture or dislocation. Minimal hypertrophic changes of the medial tibiofemoral compartment. Cartilage spaces are preserved on nonweightbearing images. Suboptimal evaluation for joint effusion secondary to positioning. Quadriceps enthesopathy. Soft tissues are unremarkable. Juan Solitario MD IMG XR LOWER EXTREMITY Hallie l Result documented in this encounter Visit Diagnoses Diagnosis Pain Generalized pain Pain Generalized pain documented in this encounter Care Teams Business Support Coordinator Relationship Specialty Start Date End Date Elizabeth Mukherjee MD [address] [place] [phone] [email or web address] PCP - General Internal Medicine 10/25/16 08/19/17 Brendan Mckeon MD [address] [place] [id number] PCP - General Internal Medicine 08/20/17 09/10/17 Unknown, Say, [address] [place] [id number] PCP - General 09/11/17 documented as of this encounter Additional Source Comments The information contained in this document represents components of the legal health record. It is not the complete legal health record.[facility]
--- OUTSIDE RECORDS SUMMARY | 2025-05-08 19:52 | XMS_ITS | Encounter Summary ---
Author Organization [facility] Address [address] [facility] [address] [place] [address] Care Team Providers Care Entertainment Agent Name Role Phone Mike Nieto MD Primary Care Provider [phone] Mike Nieto MD Unavailable Rachelle Al MD Unavailable [phone] Jada Brush NP Primary Care Provide r Sarbjit Bloom MD Primary Care Provider [phone] Encounter Details Date Type Department Care Team (Late st Contact Info) Description 12/20/2021 Ophth Exam [facility] [address] [facility] [place] [address] Paul Bernal MD [address] [place], [place] [id number] Social History Tobacco Use Types Packs/Day Years Used Date Smoking Tobacco: Never Assessed Sex and Gender Information Value Date Recorded Sex Assigned at Male 02/04/2023 2:17 PM EDT Legal Sex Male 4:44 AM EST Gender Identity Male 02/04/2023 2:17 PM EDT Sexual Orientation Straight 02/04/2023 2: 17 PM EDT COVID-19 Exposure Response Date Recorded In the last 10 days, have yo u been in contact with someone who was confirmed or suspected to have Coronavirus/COVID-19? No / Unsure 12/20/2021 7:24 PM EDT documented as of this encounter Plan of Treatment Not on file documented as of this encounter Visit Diagnoses Not on filedocumented in this encounter Care Teams Entertainment Agent Relationship Specialty Start Date End Date Mike Nieto MD PCP - General 08/25/21 03/07/22 Jada Brush NP [address] [place] [phone] PCP - General Nurse Practitioner 03/08/22 04/23/22 Sarbjit Bloom MD [address] [place] [phone] PCP - General Internal Medicine 04/24/22 Mike Nieto MD 08/25/21 Rachelle Al MD [facility] [address] [place] [address] 08/25/21 documented as of this encounter
--- OUTSIDE RECORDS SUMMARY | 2025-05-08 19:52 | XMS_ITS | Encounter Summary ---
Author Organization [facility] Address [address] [place] [address] Phone Care Team Providers Care Film Cutter Name Role Phone Unknown, Unknown Primary Care Provider Alesia pimentel Encounter Details Date Type Department Care Team (Late st Contact Info) Description 06/24/2022 Procedure Pass [facility], Ct Scan - [address] [address] Social History Tobacco Use Types Packs/Day Years [...] on filedocumented in this encounter Care Teams Film Cutter Relationship Specialty Start Date End Date Unknown, Unknown, PCP - General 09/11/17 documented as of this encounter Additional Source Comments The information contained in this document represents components of the legal health record. It is not the complete legal health record.[facility]
--- OUTSIDE RECORDS SUMMARY | 2025-05-08 19:52 | XMS_ITS | Encounter Summary ---
Author Organization [facility] Address [address] [place] [address] Phone Care Team Providers Care Caregivers Non Medical Name Role Phone Unknown, Unknown Primary Care Provider Alesia pimentel Encounter Details Date Type Department Care Team (Late st Contact Info) Description 06/24/2022 Procedure Pass [facility], Ct Scan - [address] [address] Social History Tobacco Use Types Packs/Day Years [...] on filedocumented in this encounter Care Teams Caregivers Non Medical Relationship Specialty Start Date End Date Unknown, Unknown, PCP - General 09/11/17 documented as of this encounter Additional Source Comments The information contained in this document represents components of the legal health record. It is not the complete legal health record.[facility]
--- OUTSIDE RECORDS SUMMARY | 2025-05-08 19:52 | XMS_ITS | Clinical Summary ---
Author Organization [employer] Address [address] [facility] [place] [address] Care Team Providers Care Edge Baster Name Role Phone No, Pcp ASSEMBLER GOLD FRAME Primary Care Provider Unavailabl e Allergies No known active allergies Medications chlorhexidine (PERIDEX) 0.12 % solution RINSE 1/2 OUNCE TWICE A DAY AFTER BREAKFAST AND AT BEDTIME AFTER BRUSHING AND FLOSSING 2 7 Active losartan (COZAAR) 100 MG tablet Take 100 mg by mouth daily Indications: Hypertension. Active traZODone (DESYREL) 100 MG tablet Take 100 mg by mouth nightly. Active topiramate (TOPAMAX) 100 MG tablet Take 100 mg by mouth 2 (two) times a day. Active Social History Tobacco Use Types Packs/Day Years Used Date Smoking Tobacco: Never Sex and Gender Information Value Date Recorded Sex Assigned at Not on file Legal Sex Male 5:15 PM EDT Gender Identity Not on file Sexual Orientation Not on file Last Filed Vital Signs Vital Sign Reading Time Taken Comments Blood Pressure 144/88 01/02/2017 6:25 PM EDT Pulse 97 01/02/2017 6:25 PM EDT Temperature 36.6 C (97.8 F) 01/02/2017 6:25 PM EDT Respiratory Rate 16 01/02/2017 6:25 PM EDT Oxygen Saturation 97% 01/02/2017 6:25 PM EDT Inhaled Oxygen Concentration - - Weight 160 kg (352 lb) 01/02/2017 6:25 PM EDT Height 167.6 cm (5' 6 ) 01/02/2017 6:25 PM EDT Body Mass Index 56.81 01/02/2017 6:25 PM EDT Plan of Treatment Health Maintenance Due Date Last Done Comments Colorectal Cancer: COLONOSCO PY Screening every 10 yrs (or Modifier) 1968 Depression: Screening Annual ly using PHQ-2/9 in Adults 18 yrs or above (or HM Modifier)([facility]) 1986 Hepatitis C Virus Infection in Adolescents and Adults: Screening (or Modifier) ([facility]) 1986 SDOH Screening Reminder: Yolis pinzon for all adults ([facility]) 1986 Tobacco Smoking Cessation: i n Adults excluding Women: Behavioral and Pharmacotherapy Interventions ([facility]) 1986 DTaP/Tdap/Td Vaccines ([facility]) (1 - Tdap) 11/06/1987 Colorectal Cancer Screening 45 -75 Yrs (or HM Modifier ) 2013 Colorectal Cancer: FLEXIBLE SIGMOIDOSCOPY Screening every 5 yrs 2013 Colorectal Cancer: Fecal Imm unochemical Test (FIT) [facility]ually [facility] 2013 Colorectal Cancer: High-sens itivity gFOBT Screening Annually [facility] 2013 Colorectal Cancer: Stool Col oguard Screening every 3 yrs 2013 Colorectal Cancer:CT Colonography Screening every 5 yr s 2013 Pneumococcal Vaccination Scr eening: Patients 50+ yrs of age ([facility]) (1 of 1 - PCV) 2018 Zoster/Shingles Vaccine Seri es Screening: Adults aged 18+ yrs (or HM Modifiers)([facility]) (1 of 2) 2018 Flu Vaccination: Yearly for ages 18mos through 64 years (or Modifier)([facility]) 02/19/2025 COVID-19 Vaccine Screening: Initial Series and Booster Status ([facility]) (2023- season) 2025 [employer] Not on file Insurance [facility] [employer] [place] [id number] Care Teams Edge Baster Relationship Specialty Start Date End Date No, Pcp, ASSEMBLER GOLD FRAME N/A Do not use PCP - General 03/18/17
--- OUTSIDE RECORDS SUMMARY | 2025-05-08 19:52 | XMS_ITS | Encounter Summary ---
Author Organization [facility] Address [address] [place] [address] Phone Care Team Providers Care Gauger Chief Name Role Phone Unknown, Unknown Primary Care Provider Alesia pimentel Encounter Details Date Type Department Care Team (Late st Contact Info) Description 06/24/2022 Procedure Pass [facility], Ct Scan - [address] [id number] Social History Tobacco Use Types Packs/Day Years [...] on filedocumented in this encounter Care Teams Gauger Chief Relationship Specialty Start Date End Date Unknown, Unknown, PCP - General 09/11/17 documented as of this encounter Additional Source Comments The information contained in this document represents components of the legal health record. It is not the complete legal health record.[facility]
[2025-05-08 20:05] LABS: Alkaline Phosphatase 100 U/L (39-117)
[2025-05-08 21:02] VITALS: PULSE 78; RESP 22; O2SAT 98
[2025-05-08] MEDS: Albuterol Sulfate 5 MG, Albuterol/Iprat 2.5/0.5MG 3 ML 3 ML INHALE (21:11)
[2025-05-08 21:19] LABS: D Dimer High Sensitivity 152 NG/ML
[2025-05-08 22:04] VITALS: BP 180/87; PULSE 78; RESP 22; TEMP 36.7; O2SAT 97
== END 2025-05-08 22:05 | disposition home or self-care (01) ==
PROVIDERS: Physician Assistant; Registered Nurse Emergency; Emergency Provider Student in an Organized Health Care Education/Training Program
DX: J40 Bronchitis, not specified as acute or chronic (principal); R05.9 Cough, unspecified; Z03.818 Encounter for observation for suspected exposure to other biological agents ruled out; I10 Essential (primary) hypertension; E11.9 Type 2 diabetes mellitus without complications; Z79.84 Long term (current) use of oral hypoglycemic drugs
CPT/HCPCS: 36415; 71046; 80053; 83880; 85025; 85379; 87502; 87635; 87651; 94640; 99283; 99284

== ENCOUNTER → 2025-05-08 14:35 | Outpatient (BNV) | payer OTHER, SELFPAY | PROVIDERS: Visit Provider Radiology Diagnostic Radiology | DX: R05.9 Cough, unspecified (principal) | CPT/HCPCS: 71046 ==